=== PATIENT | female | born 1975 | race Two or more races ===

== ENCOUNTER 2018-10-15 00:55 | Emergency (ER) | payer OTHER ==
[~2018-10-15] VITALS: Ht 165.1 cm; Wt 68.0 kg
[2018-10-15] MEDS ORDERED: MACROBID 100 M100 MG PO (04:04)
[2018-10-15] MEDS ORDERED: INTESTINEX680 M1 PO (04:04)
== END 2018-10-15 04:06 ==
LOC: ER 00:55
DX: N39.0 Urinary tract infection, site not specified (principal); B96.29 Other Escherichia coli [E. coli] as the cause of diseases classified elsewhere